=== PATIENT | male | born 1955 | race Caucasian/White ===

== ENCOUNTER 2021-11-20 13:08 | Observation (INO) ==
[2021-11-20 15:02] LABS: BASOPHILS # (AUTO) 0.1 X10^3/uL (0.0-0.1); BASOPHILS % (AUTO) 0.7 % (0.2-1.0); EOSINOPHILS # (AUTO) 0.2 x10^3/uL (0.0-0.2); EOSINOPHILS % (AUTO) 2.6 % (0.9-2.9); HEMATOCRIT 31.5 % (42.0-54.0); HEMOGLOBIN 10.7 g/dL (13.5-18.0); LYMPHOCYTES # (AUTO) 1.8 X10^3/uL (1.3-2.9); LYMPHOCYTES % (AUTO) 20.1 % (21.0-51.0); MEAN CORPUSCULAR HEMOGLOBIN 33.3 pg (27.0-34.0); MEAN CORPUSCULAR HGB CONC 33.9 g/dL (33.0-35.0); MONOCYTES # (AUTO) 0.7 x10^3/uL (0.3-0.8); MONOCYTES % (AUTO) 7.6 % (0.0-13.0); NEUTROPHILS # (AUTO) 6.1 x10^3/uL (2.2-4.8); RED BLOOD COUNT 3.21 X10^6/uL (4.7-6.0); RED CELL DISTRIBUTION WIDTH 18.4 % (11.6-16.5); WHITE BLOOD COUNT 8.9 X10^3/uL (3.6-10.0)
[2021-11-20] MEDS: NS 1,000 ML IV 1,000 ML IV SCH ×2 (15:11→21:31)
[2021-11-20 15:15] LABS: ALANINE AMINOTRANSFERASE 21 Units/L (12-78); ALBUMIN 2.9 g/dL (3.4-5.0); ALKALINE PHOSPHATASE 66 Units/L (46-116); ASPARTATE AMINO TRANSFERASE 39 Units/L (15-37); BLOOD UREA NITROGEN 7 mg/dL (7-18); CARBON DIOXIDE 33.5 mmol/L (21-32); CHLORIDE 98 mmol/L (98-107); COR CA(FOR HYPOALB) 8.9 mg/dL (8.5-10.1); CREATINE KINASE 128 Units/L (39-308); CREATININE 0.76 mg/dL (0.70-1.30); SODIUM 135 mmol/L (136-145); TOTAL PROTEIN 6.1 g/dL (6.4-8.2); eGFR NON BLACK RACES > 60 (>60)
--- NOTE | 2021-11-20 15:41 | DR.PROGNOT ---
Hospital Progress Notes - Progress Note for Day of: Progress Note Date: 11/20/21 - Chief Complaint Chief Complaint: having poor appetite , Wt loss .nausea. feeling weak antired . difficulty swallowing and nausea .. recent constipation - Past Medical Family Social History Past Med/Fam/Surg Hx: No changes since H&P Allergies: Allergies No Known Drug Allergies Allergy (Verified 11/17/21 20:09) - Review Of Systems ROS: No change since H&P - Vital Signs Vital Signs: Temperature 97.7 F Pulse Rate [Bilateral Radial] 115 Respiratory Rate 18 Blood Pressure [Left Arm] 118/70 Blood Pressure 114/64 O2 Sat by Pulse Oximetry 98 - Physical Exam Oriented: Normal Eyes: Normal Ear: Normal Nose: Normal Throat: Normal Respiratory: Normal Cardiovascular: Normal : Normal GI:Auscultation: Normal GI:Palpation: Normal GI: Tenderness: Normal Musculoskeletal: Normal Psychiatric: Depression Speech Pattern: Clear, Appropriate - Laboratory and Diagnostics Result Diagrams: 11/20/21 14:50 11/20/21 14:50 Labs: Laboratory WBC 8.9 X10^3/uL (3.6-10.0) 11/20/21 14:50 RBC 3.21 X10^6/uL (4.7-6.0) L 11/20/21 14:50 Hgb 10.7 g/dL (13.5-18.0) L 11/20/21 14:50 Hct 31.5 % (42.0-54.0) L 11/20/21 14:50 MCV 98.0 fL (80.0-100.0) 11/20/21 14:50 MCH 33.3 pg (27.0-34.0) 11/20/21 14:50 MCHC 33.9 g/dL (33.0-35.0) 11/20/21 14:50 RDW 18.4 % (11.6-16.5) H 11/20/21 14:50 Plt Count 208 X10^3/uL (150.0-450.0) 11/20/21 14:50 MPV 7.0 fL (7.4-11.0) L 11/20/21 14:50 Neut % (Auto) 69.0 % (42.0-75.0) 11/20/21 14:50 Lymph % (Auto) 20.1 % (21.0-51.0) L 11/20/21 14:50 [place] % (Auto) 7.6 % (0.0-13.0) 11/20/21 14:50 Eos % (Auto) 2.6 % (0.9-2.9) 11/20/21 14:50 Baso % (Auto) 0.7 % (0.2-1.0) 11/20/21 14:50 Neut # (Auto) 6.1 x10^3/uL (2.2-4.8) H 11/20/21 14:50 Lymph # (Auto) 1.8 X10^3/uL (1.3-2.9) 11/20/21 14:50 [place] # (Auto) 0.7 x10^3/uL (0.3-0.8) 11/20/21 14:50 Eos # (Auto) 0.2 x10^3/uL (0.0-0.2) 11/20/21 14:50 Baso # (Auto) 0.1 X10^3/uL (0.0-0.1) 11/20/21 14:50 Absolute Nucleated RBC 0.9 /100WBC 11/20/21 14:50 Sodium 135 mmol/L (136-145) L 11/20/21 14:50 Corrected Sodium TNP 11/20/21 14:50 Potassium 4.8 mmol/L (3.5-5.1) 11/20/21 14:50 Chloride 98 mmol/L (98-107) 11/20/21 14:50 Carbon Dioxide 33.5 mmol/L (21-32) H 11/20/21 14:50 BUN 7 mg/dL (7-18) 11/20/21 14:50 Creatinine 0.76 mg/dL (0.70-1.30) 11/20/21 14:50 Est GFR (MDRD) Af Amer > 60 (>60) 11/20/21 14:50 Est GFR (MDRD) Non-Af > 60 (>60) 11/20/21 14:50 Glucose 95 mg/dL (65-99) 11/20/21 14:50 Calcium 8.0 mg/dL (8.5-10.1) L 11/20/21 14:50 Corrected Calcium 8.9 mg/dL (8.5-10.1) 11/20/21 14:50 Total Bilirubin 1.00 mg/dL (0.2-1.0) 11/20/21 14:50 AST 39 Units/L (15-37) H 11/20/21 14:50 ALT 21 Units/L (12-78) 11/20/21 14:50 Alkaline Phosphatase 66 Units/L (46-116) 11/20/21 14:50 Creatine Kinase 128 Units/L (39-308) 11/20/21 14:50 Total Protein 6.1 g/dL (6.4-8.2) L 11/20/21 14:50 Albumin 2.9 g/dL (3.4-5.0) L 11/20/21 14:50 Globulin 3.2 g/dL (2.5-4.5) 11/20/21 14:50 Albumin/Globulin Ratio 0.9 Ratio (1.1-2.1) L 11/20/21 14:50 - Assessment and Plan 1: poor appettie ,and Wt loss > 20 lb. dysphagia . constipation . h/o alcohol abuse and heavy smoker . fo hydration , abd/pelvic CT . GI endoscopy on Tuesday ..
--- NOTE | 2021-11-20 16:51 | RAD ---
Chest AP portableIndication: Dehydration. Failure to thriveCOMPARISONSeptember 2021FINDINGSThere is no pneumothorax or effusion. Heart size is prominent.IMPRESSIONCardiomegaly without other acute chest process.Electronically signed by: TROY DE LOS SANTOS (Nov 20, 2021 16:49:36)
[2021-11-20] MEDS: DESYREL PO SCH (21:32)
[2021-11-20] MEDS: PERCOCET TAB 5/325 MG PO PRN (21:38)
[2021-11-20] MEDS: XANAX PO PRN (21:39)
[2021-11-20 21:46] LABS: BILIRUBIN,URINE NEGATIVE (NEGATIVE); BLOOD/HEMOGLOBIN,URINE 5+ (NEGATIVE); GLUCOSE, URINE NEGATIVE (NEGATIVE); KETONES,URINE 1+ (NEGATIVE); LEUKOCYTE ESTERASE ,URINE NEGATIVE (NEGATIVE); NITRITES,URINE NEGATIVE (NEGATIVE); PROTEIN,URINE 2+ (NEGATIVE); UROBILINOGEN,URINE 1+ (NORMAL)
[2021-11-20 21:52] LABS: APPEARANCE,URINE CLEAR (CLEAR); COLOR,URINE DARK YELLOW (YELLOW)
[2021-11-20 21:53] LABS: BACTERIA,URINE NEGATIVE /HPF (NEGATIVE); SQUAMOUS EPITHELIAL CELL,UR RARE /HPF (NEGATIVE)
[2021-11-21 05:38] LABS: BASOPHILS # (AUTO) 0.1 X10^3/uL (0.0-0.1); BASOPHILS % (AUTO) 1.1 % (0.2-1.0); EOSINOPHILS # (AUTO) 0.2 x10^3/uL (0.0-0.2); EOSINOPHILS % (AUTO) 3.1 % (0.9-2.9); HEMATOCRIT 28.2 % (42.0-54.0); HEMOGLOBIN 9.4 g/dL (13.5-18.0); LYMPHOCYTES # (AUTO) 2.3 X10^3/uL (1.3-2.9); LYMPHOCYTES % (AUTO) 33.8 % (21.0-51.0); MEAN CORPUSCULAR HEMOGLOBIN 32.8 pg (27.0-34.0); MEAN CORPUSCULAR HGB CONC 33.4 g/dL (33.0-35.0); MEAN CORPUSCULAR VOLUME 98.1 fL (80.0-100.0); MEAN PLATELET VOLUME 6.7 fL (7.4-11.0); MONOCYTES # (AUTO) 0.5 x10^3/uL (0.3-0.8); NEUTROPHILS # (AUTO) 3.7 x10^3/uL (2.2-4.8); RED BLOOD COUNT 2.87 X10^6/uL (4.7-6.0); RED CELL DISTRIBUTION WIDTH 18.4 % (11.6-16.5); WHITE BLOOD COUNT 6.8 X10^3/uL (3.6-10.0)
[2021-11-21 05:46] LABS: ALANINE AMINOTRANSFERASE 15 Units/L (12-78); ALBUMIN 2.4 g/dL (3.4-5.0); ALKALINE PHOSPHATASE 53 Units/L (46-116); ASPARTATE AMINO TRANSFERASE 15 Units/L (15-37); BLOOD UREA NITROGEN 5 mg/dL (7-18); CALCIUM 7.4 mg/dL (8.5-10.1); CARBON DIOXIDE 33.3 mmol/L (21-32); CHLORIDE 102 mmol/L (98-107); COR CA(FOR HYPOALB) 8.7 mg/dL (8.5-10.1); CREATININE 0.65 mg/dL (0.70-1.30); SODIUM 137 mmol/L (136-145); TOTAL PROTEIN 4.9 g/dL (6.4-8.2); eGFR NON BLACK RACES > 60 (>60)
[2021-11-21] MEDS: NS 1,000 ML IV 1,000 ML IV SCH ×3 (06:28→18:13)
[2021-11-21] MEDS: NexIUM PO SCH (08:18)
[2021-11-21] MEDS: PERCOCET TAB 5/325 MG PO PRN ×2 (08:19→21:08)
[2021-11-21] MEDS: XANAX PO PRN ×2 (08:19→21:08)
[2021-11-21] MEDS ORDERED: K-DUR TAB 20 MEQ PO PRN (09:58)
[2021-11-21] MEDS ORDERED: POTASSIUM CHLORIDE LIQ 20 MEQ UDC PO PRN (09:58)
[2021-11-21] MEDS ORDERED: MICRO K EXTEN CAP 10 MEQ PO PRN (09:58)
[2021-11-21] MEDS ORDERED: POTASSIUM CHL 40 MEQ/NS 0.45% 500 ML IV PRN (09:58)
[2021-11-21] MEDS ORDERED: KLOR-CON PO PRN (09:58)
[2021-11-21] MEDS ORDERED: POTASSIUM CHL 60 MEQ/NS 0.45% 500 ML IV PRN (09:58)
[2021-11-21] MEDS ORDERED: K-RIDER 10 MEQ/NS 100 ML 10 MEQ/100 ML BAG IV PRN (09:58)
[2021-11-21] MEDS: MAGNESIUM SULFATE 1 GRAM/100 mL PREMIX 1 G/100 ML BAG IV PRN ×2 (11:32→12:44)
[2021-11-21 18:56] VITALS: BMI 36.6
[2021-11-21] MEDS: DESYREL PO SCH (22:04)
[2021-11-22] MEDS: NS 1,000 ML IV 1,000 ML IV SCH ×3 (04:11→14:16)
[2021-11-22 05:27] LABS: HEMOGLOBIN 10.3 g/dL (13.5-18.0); WHITE BLOOD COUNT 7.3 X10^3/uL (3.6-10.0)
[2021-11-22 05:31] LABS: BASOPHILS % (AUTO) 0.6 % (0.2-1.0); EOSINOPHILS # (AUTO) 0.3 x10^3/uL (0.0-0.2); EOSINOPHILS % (AUTO) 3.5 % (0.9-2.9); LYMPHOCYTES # (AUTO) 1.8 X10^3/uL (1.3-2.9); LYMPHOCYTES % (AUTO) 24.5 % (21.0-51.0); MEAN CORPUSCULAR HEMOGLOBIN 33.7 pg (27.0-34.0); MEAN CORPUSCULAR HGB CONC 34.3 g/dL (33.0-35.0); MEAN CORPUSCULAR VOLUME 98.3 fL (80.0-100.0); MEAN PLATELET VOLUME 7.1 fL (7.4-11.0); MONOCYTES # (AUTO) 0.6 x10^3/uL (0.3-0.8); MONOCYTES % (AUTO) 8.3 % (0.0-13.0); NEUTROPHILS # (AUTO) 4.6 x10^3/uL (2.2-4.8); NEUTROPHILS % (AUTO) 63.1 % (42.0-75.0); RED BLOOD COUNT 3.05 X10^6/uL (4.7-6.0); RED CELL DISTRIBUTION WIDTH 19.1 % (11.6-16.5)
[2021-11-22] MEDS: XANAX PO PRN ×2 (05:44→21:07)
[2021-11-22] MEDS: PERCOCET TAB 5/325 MG PO PRN ×3 (05:44→21:06)
[2021-11-22 05:45] LABS: ALANINE AMINOTRANSFERASE 15 Units/L (12-78); ALBUMIN 2.5 g/dL (3.4-5.0); ALKALINE PHOSPHATASE 60 Units/L (46-116); ASPARTATE AMINO TRANSFERASE 13 Units/L (15-37); BLOOD UREA NITROGEN 4 mg/dL (7-18); CALCIUM 7.5 mg/dL (8.5-10.1); CARBON DIOXIDE 30.3 mmol/L (21-32); CHLORIDE 103 mmol/L (98-107); COR CA(FOR HYPOALB) 8.7 mg/dL (8.5-10.1); CREATININE 0.57 mg/dL (0.70-1.30); SODIUM 137 mmol/L (136-145); TOTAL PROTEIN 5.3 g/dL (6.4-8.2); eGFR NON BLACK RACES > 60 (>60)
[2021-11-22] MEDS: NexIUM PO SCH (08:34)
[2021-11-22] MEDS ORDERED: CITROMA PO PRN (10:26)
[2021-11-22] MEDS ORDERED: MILK OF MAGNESIA PO ONE (10:26)
--- NOTE | 2021-11-22 12:41 | DR.H&P ---
H&P History & Physical for Day of: H&P Date: 11/20/21 Chief Complaint Chief Complaint: Abdominal Pain Nausea/vomiting Generalized weakness Allergies Allergies Allergy/AdvReac Type Severity Reaction Status Date / Time No Known Drug Allergies Allergy Verified 11/17/21 20:09 History of Present Illness History of Present Illness: Pt is a 66 year old male past medical history of Hypertension, DDD, directly admitted after failing outpatient treatment and being found by his ex- on the floor due to weakness. Pt reports that he has had unintentional weight loss and decreased appetite for the past 2 months. He has recently been having abdominal pain and nausea/vomiting this week. He has been feeling fatigued. Labs/imaging: Wbc 8.9, Hgb 10.7, Plt 208, Na 135, K 4.8, Creatinine 0.76, Glucose 95, CK 128, UA: not c/w infection. COVID-19 negative. Will start patient on IVF NS@125ml/h, will get CTAP with oral and IV contrast due to abdominal pain, nausea, vomiting, abnormal weight loss, in the of suspected and to rule out cancer. Keep NPO until imaging. Pt did have elevated CEA in outpatient clinic. Will consult general surgery-Dr Mendoza for further evaluation. Order antiemetics prn. Will continue to closely monitor and follow up labs/imaging. Past Medical History Past Medical History: Arthritis and Hypertension Past Surgical History Surgical History: Ortho Surgery and Other Family History Family Medical History: Diabetes Mellitus, Cancer, NH and Hypertension Social History Does patient currently use any type of tobacco product: Yes Have you used tobacco products in the last 12 months: Yes Type of Tobacco Use: Cigarettes Does any household member use tobacco: No Alcohol Use: None Drug Use: None Medications Home Medications: No Known Drug Allergies Allergy (Verified 11/17/21 20:09) CONTINUE taking the following medications alprazolam 0.5 mg tablet 1 tab PO BID PRN Anxiety 11/20/21 [History] ciprofloxacin HCl 500 mg tablet 500 mg PO BID 11/20/21 [History] esomeprazole magnesium 40 mg capsule,delayed release 1 cap PO DAILY 11/20/21 [History] oxycodone-acetaminophen 10 mg-325 mg tablet 1 tab PO TID PRN Pain 11/20/21 [His tory] promethazine 25 mg tablet 25 mg PO Q6H PRN Nausea 11/20/21 [History] trazodone 150 mg tablet 1 tab PO HS 11/20/21 [History] Labs Result Diagrams: 11/23/21 05:33 11/23/21 05:33 Labs: 11/20/21 21:27 Urine,Clean Catch Urine Culture - Preliminary Laboratory WBC 7.3 X10^3/uL (3.6-10.0) 11/22/21 04:30 RBC 3.05 X10^6/uL (4.7-6.0) L 11/22/21 04:30 Hgb 10.3 g/dL (13.5-18.0) L 11/22/21 04:30 Hct 30.0 % (42.0-54.0) L 11/22/21 04:30 MCV 98.3 fL (80.0-100.0) 11/22/21 04:30 MCH 33.7 pg (27.0-34.0) 11/22/21 04:30 MCHC 34.3 g/dL (33.0-35.0) 11/22/21 04:30 RDW 19.1 % (11.6-16.5) H 11/22/21 04:30 Plt Count 202 X10^3/uL (150.0-450.0) 11/22/21 04:30 MPV 7.1 fL (7.4-11.0) L 11/22/21 04:30 Neut % (Auto) 63.1 % (42.0-75.0) 11/22/21 04:30 Lymph % (Auto) 24.5 % (21.0-51.0) 11/22/21 04:30 [place] % (Auto) 8.3 % (0.0-13.0) 11/22/21 04:30 Eos % (Auto) 3.5 % (0.9-2.9) H 11/22/21 04:30 Baso % (Auto) 0.6 % (0.2-1.0) 11/22/21 04:30 Neut # (Auto) 4.6 x10^3/uL (2.2-4.8) 11/22/21 04:30 Lymph # (Auto) 1.8 X10^3/uL (1.3-2.9) 11/22/21 04:30 [place] # (Auto) 0.6 x10^3/uL (0.3-0.8) 11/22/21 04:30 Eos # (Auto) 0.3 x10^3/uL (0.0-0.2) H 11/22/21 04:30 Baso # (Auto) 0.0 X10^3/uL (0.0-0.1) 11/22/21 04:30 Absolute Nucleated RBC 0.3 /100WBC 11/22/21 04:30 Sodium 137 mmol/L (136-145) 11/22/21 04:30 Corrected Sodium TNP 11/22/21 04:30 Potassium 3.9 mmol/L (3.5-5.1) 11/22/21 04:30 Chloride 103 mmol/L (98-107) 11/22/21 04:30 Carbon Dioxide 30.3 mmol/L (21-32) 11/22/21 04:30 BUN 4 mg/dL (7-18) L 11/22/21 04:30 Creatinine 0.57 mg/dL (0.70-1.30) L 11/22/21 04:30 Est GFR (MDRD) Af Amer > 60 (>60) 11/22/21 04:30 Est GFR (MDRD) Non-Af > 60 (>60) 11/22/21 04:30 Glucose 76 mg/dL (65-99) 11/22/21 04:30 Calcium 7.5 mg/dL (8.5-10.1) L 11/22/21 04:30 Corrected Calcium 8.7 mg/dL (8.5-10.1) 11/22/21 04:30 Magnesium 1.8 mg/dL (1.7-2.9) 11/22/21 04:30 Total Bilirubin 0.70 mg/dL (0.2-1.0) 11/22/21 04:30 AST 13 Units/L (15-37) L 11/22/21 04:30 ALT 15 Units/L (12-78) 11/22/21 04:30 Alkaline Phosphatase 60 Units/L (46-116) 11/22/21 04:30 Creatine Kinase 128 Units/L (39-308) 11/20/21 14:50 Total Protein 5.3 g/dL (6.4-8.2) L 11/22/21 04:30 Albumin 2.5 g/dL (3.4-5.0) L 11/22/21 04:30 Globulin 2.8 g/dL (2.5-4.5) 11/22/21 04:30 Albumin/Globulin Ratio 0.9 Ratio (1.1-2.1) L 11/22/21 04:30 Specimen Type Clean catch urine 11/20/21 21: Urine Color Dark yellow (YELLOW) 11/20/21 21: Urine Appearance Clear (CLEAR) 11/20/21 21: Urine pH 7.0 (5.0 - 8.0) 11/20/21 21: Ur Specific [place] 1.010 (1.000-1.030) 11/20/21 21: Urine Protein 2+ (NEGATIVE) 11/20/21 21: Urine Glucose (UA) Negative (NEGATIVE) 11/20/21 21: Urine Ketones 1+ (NEGATIVE) 11/20/21 21: Urine Blood 5+ (NEGATIVE) 11/20/21 21: Urine Nitrite Negative (NEGATIVE) 11/20/21 21: Urine Bilirubin Negative (NEGATIVE) 11/20/21 21: Urine Urobilinogen 1+ (NORMAL) 11/20/21 21: Ur Leukocyte Esterase Negative (NEGATIVE) 11/20/21 21: Urine RBC 10-20 /HPF (0-3) A 11/20/21 21: Urine WBC None seen /HPF (0-5) 11/20/21 21: Ur Squamous Epith Cells Rare /HPF (NEGATIVE) 11/20/21 21: Urine Bacteria Negative /HPF (NEGATIVE) 11/20/21 21: Urine Mucus Rare /HPF (NEGATIVE) 11/20/21 21: Ur Culture Indicated? No/not indicated 11/20/21 21: SARS-CoV-2 (PCR) Negative (NEGATIVE) 11/20/21 21: Review of Systems Constitutional: Weakness Eyes: No Symptoms Reported ENT: No Symptoms Reported Respiratory: No Symptoms Reported Cardiovascular: No Symptoms Reported Gastrointestinal: Nausea, Vomiting and Abdominal Pain Genitourinary: No Symptoms Reported Musculoskeletal: No Symptoms Reported Skin: No Symptoms Reported Neurological: No Symptoms Reported Physical Exam Vital Signs: Temperature 97.6 F Pulse Rate [Bilateral Radial] 104 Respiratory Rate 22 Blood Pressure [Left Arm] 124/60 Blood Pressure 114/64 O2 Sat by Pulse Oximetry 97 Oriented: Normal Eyes: Normal Ear: Normal Nose: Normal Throat: Normal Respiratory: Clear Throughout Cardiovascular: Normal : Normal Auscultation: Bowel Sounds: Normal Palpation: Normal Tenderness: Epigastric and Moderate Skin: Decreased [place]urgur Musculoskeletal: Normal Psychiatric: Normal Mood Description: Calm and Appropriate Affect: Normal Speech Pattern: Clear and Appropriate Assessment/Plan (1) Abdominal pain: Status: Acute Plan: IVF, order CTAP Antiemetics prn Consult general surgery (2) Nausea and vomiting: Status: Acute (3) Unintentional weight loss: Status: Acute (4) Weakness: Status: Acute (5) Dehydration: Status: Acute Plan: IVF (6) Elevated CEA: Status: Acute Plan: consult general surgery (7) Anemia: Status: Acute Plan: Anemia workup Review H&P Reviewed: Yes Patient was examined?: Yes
--- NOTE | 2021-11-22 15:23 | RAD ---
HISTORYconstipation, failure to thrive, dehydrationSTUDYKUBCOMPARISONNone br.br.br imageFINDINGSModerate stool burden and gaseous distension of the colon involving the cecum to distal transverse colon.Small stool burden in the remainder of the colon.Gas in scattered loops of non-distended small bowel.No gross free air.No abnormal calcifications.No acute osseous abnormality.IMPRESSION1. No acute intra-abdominal abnormality detected.2. Moderate stool burden and gaseous distension of the colon involving the cecum to distal transverse colon. Small stool burden in the remainder of the colon.Electronically signed by: Holden Doll (Nov 22, 2021 15:21:17)
[2021-11-22] MEDS: MAGNESIUM SULFATE 1 GRAM/100 mL PREMIX 1 G/100 ML BAG IV PRN ×2 (15:40→16:51)
[2021-11-22] MEDS: PROVENTIL NEB TX 0.083% 2.5MG/ 3ML NEB SCH ×2 (16:35→17:15)
--- NOTE | 2021-11-22 17:08 | PCM.PROG ---
Progress Note Progress Note for Day of Date of Exam: 11/22/21 Subjective Subjective: The patient is fairly groggy this morning. He was slow to get aroused and start talking this morning. He reports that he still feeling weak but he managed to get to the bathroom earlier with help from the nurse. Patient does report not having a bowel movement in the last 2 to 3 days and he feels constipated. We will order him some milk of magnesia today and if that does not work by about 4 or 5:00 this afternoon we will give him some magnesium citrate. Past Medical Family Social History Past Med/Fam/Surg Hx: No changes since H&P Allergies: Allergies No Known Drug Allergies Allergy (Verified 11/17/21 20:09) Review of Systems ROS: No change since H&P Vital Signs and I&O's Vital Signs: Temperature 97.7 F Pulse Rate [Bilateral Radial] 109 Respiratory Rate 20 Blood Pressure [Left Arm] 149/76 Blood Pressure 114/64 O2 Sat by Pulse Oximetry 97 Intake and Output: Intake & Output 11/20/21 11/21/21 11/22/21 11/23/21 11:59 11:59 11:59 11:59 Intake Total 1747 / 1747 2569 / 2569 1113 / 1113 Output Total 800 / 800 500 / 500 Balance 947 / 947 2069 / 2069 1113 / 1113 Physical Exam Oriented: Normal Eyes: Normal Ear: Normal Nose: Normal Throat: Normal Respiratory: Normal Cardiovascular: Normal : Normal Auscultation: Bowel Sounds: Normal Tenderness: Epigastric and Moderate Skin: Decreased [place] Musculoskeletal: Normal Psychiatric: Normal Mood Description: Calm and Appropriate Affect: Normal Speech Pattern: Clear and Appropriate Laboratory and Diagnostics Result Diagrams: 11/22/21 04:30 11/22/21 04:30 Labs: 11/20/21 21:27 Urine,Clean Catch Urine Culture - Preliminary Laboratory WBC 7.3 X10^3/uL (3.6-10.0) 11/22/21 04:30 RBC 3.05 X10^6/uL (4.7-6.0) L 11/22/21 04:30 Hgb 10.3 g/dL (13.5-18.0) L 11/22/21 04:30 Hct 30.0 % (42.0-54.0) L 11/22/21 04:30 MCV 98.3 fL (80.0-100.0) 11/22/21 04:30 MCH 33.7 pg (27.0-34.0) 11/22/21 04:30 MCHC 34.3 g/dL (33.0-35.0) 11/22/21 04:30 RDW 19.1 % (11.6-16.5) H 11/22/21 04:30 Plt Count 202 X10^3/uL (150.0-450.0) 11/22/21 04:30 MPV 7.1 fL (7.4-11.0) L 11/22/21 04:30 Neut % (Auto) 63.1 % (42.0-75.0) 11/22/21 04:30 Lymph % (Auto) 24.5 % (21.0-51.0) 11/22/21 04:30 [place] % (Auto) 8.3 % (0.0-13.0) 11/22/21 04:30 Eos % (Auto) 3.5 % (0.9-2.9) H 11/22/21 04:30 Baso % (Auto) 0.6 % (0.2-1.0) 11/22/21 04:30 Neut # (Auto) 4.6 x10^3/uL (2.2-4.8) 11/22/21 04:30 Lymph # (Auto) 1.8 X10^3/uL (1.3-2.9) 11/22/21 04:30 [place] # (Auto) 0.6 x10^3/uL (0.3-0.8) 11/22/21 04:30 Eos # (Auto) 0.3 x10^3/uL (0.0-0.2) H 11/22/21 04:30 Baso # (Auto) 0.0 X10^3/uL (0.0-0.1) 11/22/21 04:30 Absolute Nucleated RBC 0.3 /100WBC 11/22/21 04:30 Sodium 137 mmol/L (136-145) 11/22/21 04:30 Corrected Sodium TNP 11/22/21 04:30 Potassium 3.9 mmol/L (3.5-5.1) 11/22/21 04:30 Chloride 103 mmol/L (98-107) 11/22/21 04:30 Carbon Dioxide 30.3 mmol/L (21-32) 11/22/21 04:30 BUN 4 mg/dL (7-18) L 11/22/21 04:30 Creatinine 0.57 mg/dL (0.70-1.30) L 11/22/21 04:30 Est GFR (MDRD) Af Amer > 60 (>60) 11/22/21 04:30 Est GFR (MDRD) Non-Af > 60 (>60) 11/22/21 04:30 Glucose 76 mg/dL (65-99) 11/22/21 04:30 Calcium 7.5 mg/dL (8.5-10.1) L 11/22/21 04:30 Corrected Calcium 8.7 mg/dL (8.5-10.1) 11/22/21 04:30 Magnesium 1.8 mg/dL (1.7-2.9) 11/22/21 04:30 Total Bilirubin 0.70 mg/dL (0.2-1.0) 11/22/21 04:30 AST 13 Units/L (15-37) L 11/22/21 04:30 ALT 15 Units/L (12-78) 11/22/21 04:30 Alkaline Phosphatase 60 Units/L (46-116) 11/22/21 04:30 Creatine Kinase 128 Units/L (39-308) 11/20/21 14:50 Total Protein 5.3 g/dL (6.4-8.2) L 11/22/21 04:30 Albumin 2.5 g/dL (3.4-5.0) L 11/22/21 04:30 Globulin 2.8 g/dL (2.5-4.5) 11/22/21 04:30 Albumin/Globulin Ratio 0.9 Ratio (1.1-2.1) L 11/22/21 04:30 Specimen Type Clean catch urine 11/20/21 21: Urine Color Dark yellow (YELLOW) 11/20/21 21: Urine Appearance Clear (CLEAR) 11/20/21 21: Urine pH 7.0 (5.0 - 8.0) 11/20/21 21: Ur Specific [place] 1.010 (1.000-1.030) 11/20/21 21: Urine Protein 2+ (NEGATIVE) 11/20/21 21: Urine Glucose (UA) Negative (NEGATIVE) 11/20/21 21: Urine Ketones 1+ (NEGATIVE) 11/20/21 21:27 Urine Blood 5+ (NEGATIVE) 11/20/21 21:27 Urine Nitrite Negative (NEGATIVE) 11/20/21 21: Urine Bilirubin Negative (NEGATIVE) 11/20/21 21: Urine Urobilinogen 1+ (NORMAL) 11/20/21 21:27 Ur Leukocyte Esterase Negative (NEGATIVE) 11/20/21 21: Urine RBC 10-20 /HPF (0-3) A 11/20/21 21: Urine WBC None seen /HPF (0-5) 11/20/21 21:27 Ur Squamous Epith Cells Rare /HPF (NEGATIVE) 11/20/21 21: Urine Bacteria Negative /HPF (NEGATIVE) 11/20/21 21: Urine Mucus Rare /HPF (NEGATIVE) 11/20/21 21:27 Ur Culture Indicated? No/not indicated 11/20/21 21:27 SARS-CoV-2 (PCR) Negative (NEGATIVE) 11/20/21 21:27 Plan (1) Weakness: Status: Acute (2) Abdominal pain: Status: Acute (3) Nausea and vomiting: Status: Acute (4) Dehydration: Status: Acute (5) Unintentional weight loss: Status: Acute (6) Elevated CEA: Status: Acute (7) Anemia: Status: Acute (8) Constipation: Status: Acute Plan: Milk of magnesia 30 mL this morning. If this does not help him have a bowel movement later today we will give him a bottle of magnesium citrate this late afternoon if need be.
[2021-11-22 20:05] LABS: APPEARANCE,URINE CLEAR (CLEAR); BILIRUBIN,URINE NEGATIVE (NEGATIVE); BLOOD/HEMOGLOBIN,URINE 5+ (NEGATIVE); GLUCOSE, URINE NEGATIVE (NEGATIVE); KETONES,URINE 1+ (NEGATIVE); LEUKOCYTE ESTERASE ,URINE NEGATIVE (NEGATIVE); NITRITES,URINE NEGATIVE (NEGATIVE); PROTEIN,URINE 1+ (NEGATIVE); UROBILINOGEN,URINE NORMAL (NORMAL)
[2021-11-22 20:06] LABS: COLOR,URINE DARK YELLOW (YELLOW)
[2021-11-22 20:14] LABS: BACTERIA,URINE NEGATIVE /HPF (NEGATIVE); SQUAMOUS EPITHELIAL CELL,UR RARE /HPF (NEGATIVE); TRANSITIONAL EPI CELLS,URINE FEW /HPF (NEGATIVE)
[2021-11-22] MEDS: GOLYTELY or GAVILYTE or Equivalent PO SCH (21:08)
[2021-11-22] MEDS: DESYREL PO SCH (21:08)
[2021-11-23] MEDS: PROVENTIL NEB TX 0.083% 2.5MG/ 3ML NEB SCH ×2 (00:45→05:58)
[2021-11-23] MEDS ORDERED: ZOFRAN INJ 4 MG VIAL IVP ONE (03:14)
[2021-11-23] MEDS ORDERED: ZOFRAN INJ 4 MG VIAL ONE (03:17)
[2021-11-23] MEDS: NS 1,000 ML IV 1,000 ML IV SCH ×3 (05:16→19:48)
[2021-11-23] MEDS ORDERED: STERILE WATER IRRIGATION IR ONE ×2 (05:43→10:30)
[2021-11-23 05:52] LABS: BASOPHILS # (AUTO) 0.1 X10^3/uL (0.0-0.1); BASOPHILS % (AUTO) 0.6 % (0.2-1.0); EOSINOPHILS # (AUTO) 0.2 x10^3/uL (0.0-0.2); EOSINOPHILS % (AUTO) 2.6 % (0.9-2.9); HEMATOCRIT 31.7 % (42.0-54.0); HEMOGLOBIN 10.3 g/dL (13.5-18.0); LYMPHOCYTES % (AUTO) 12.8 % (21.0-51.0); MEAN CORPUSCULAR HEMOGLOBIN 32.3 pg (27.0-34.0); MEAN CORPUSCULAR HGB CONC 32.5 g/dL (33.0-35.0); MEAN CORPUSCULAR VOLUME 99.6 fL (80.0-100.0); MONOCYTES # (AUTO) 0.8 x10^3/uL (0.3-0.8); MONOCYTES % (AUTO) 9.4 % (0.0-13.0); NEUTROPHILS % (AUTO) 74.6 % (42.0-75.0); RED BLOOD COUNT 3.18 X10^6/uL (4.7-6.0); RED CELL DISTRIBUTION WIDTH 19.2 % (11.6-16.5); WHITE BLOOD COUNT 8.1 X10^3/uL (3.6-10.0)
[2021-11-23 06:08] LABS: ALANINE AMINOTRANSFERASE 15 Units/L (12-78); ALBUMIN 2.6 g/dL (3.4-5.0); ALKALINE PHOSPHATASE 68 Units/L (46-116); ASPARTATE AMINO TRANSFERASE 16 Units/L (15-37); BLOOD UREA NITROGEN 7 mg/dL (7-18); CALCIUM 7.9 mg/dL (8.5-10.1); CARBON DIOXIDE 27.2 mmol/L (21-32); CHLORIDE 102 mmol/L (98-107); CREATININE 0.68 mg/dL (0.70-1.30); MAGNESIUM 2.1 mg/dL (1.7-2.9); SODIUM 137 mmol/L (136-145); TOTAL PROTEIN 5.8 g/dL (6.4-8.2); eGFR NON BLACK RACES > 60 (>60)
--- NOTE | 2021-11-23 07:37 | PCM.PROG ---
Progress Note Progress Note for Day of Date of Exam: 11/21/21 Subjective Subjective: Pt is a 66 year old male past medical history of Hypertension, DDD, admitted for abdominal pain, nausea, vomiting, and unintentional weight loss. This morning he is feeling about the same as yesterday except with some improvement in abdominal pain and nausea. No acute events overnight. Labs /imaging: Wbc 6.8, Hgb 9.4, Plt 180, Na 137, K 3.4, Creatinine 0.65, Glucose 82. Pt is currently receiving IVF NS@125ml/h, antiemetics prn, home medications have been resumed, he is on regular diet. CT abdomen/pelvis was obtained that revealed: No acute intra abdominal/pelvic process, left adrenal nodule 2cm favors adenoma to follow up with repeat CT in on year. CXR was obtained:cardiomegaly, otherwise no acute cardiopulmonary findings. General surgery-Dr Mendoza consulted, recommend endoscopy for further evaluation. Plan on Tuesday. Otherwise, will continue with current treatment plan. Continue to monitor and follow up labs. Past Medical Family Social History Past Med/Fam/Surg Hx: No changes since H&P Allergies: Allergies No Known Drug Allergies Allergy (Verified 11/17/21 20:09) Review of Systems ROS: No change since H&P ROS changes noted: See HPI Vital Signs and I&O's Vital Signs: Temperature 98.5 F Pulse Rate [Bilateral Radial] 118 Pulse Rate 105 Respiratory Rate 20 Blood Pressure [Left Arm] 136/60 Blood Pressure 114/64 O2 Sat by Pulse Oximetry 96 Intake and Output: Intake & Output 11/20/21 11/21/21 11/22/21 11/23/21 23:59 23:59 23:59 23:59 Intake Total 525 / 525 2862 / 2862 2932 / 2932 376 / 376 Output Total 400 / 400 550 / 550 1100 / 1100 300 / 300 Balance 125 / 125 2312 / 2312 1832 / 1832 76 / 76 Physical Exam Oriented: Normal Eyes: Normal Ear: Normal Nose: Normal Throat: Normal Respiratory: Normal Cardiovascular: Normal : Normal Auscultation: Bowel Sounds: Normal Tenderness: Epigastric and Moderate Skin: Decreased Turgur Musculoskeletal: Normal Psychiatric: Normal Mood Description: Calm and Appropriate Affect: Normal Speech Pattern: Clear and Appropriate Laboratory and Diagnostics Result Diagrams: 11/23/21 05:33 11/23/21 05:33 Labs: 11/20/21 21:27 Urine,Clean Catch Urine Culture - Preliminary Laboratory WBC 8.1 X10^3/uL (3.6-10.0) 11/23/21 05:33 RBC 3.18 X10^6/uL (4.7-6.0) L 11/23/21 05:33 Hgb 10.3 g/dL (13.5-18.0) L 11/23/21 05:33 Hct 31.7 % (42.0-54.0) L 11/23/21 05:33 MCV 99.6 fL (80.0-100.0) 11/23/21 05:33 MCH 32.3 pg (27.0-34.0) 11/23/21 05:33 MCHC 32.5 g/dL (33.0-35.0) L 11/23/21 05:33 RDW 19.2 % (11.6-16.5) H 11/23/21 05:33 Plt Count 215 X10^3/uL (150.0-450.0) 11/23/21 05:33 MPV 7.0 fL (7.4-11.0) L 11/23/21 05:33 Neut % (Auto) 74.6 % (42.0-75.0) 11/23/21 05:33 Lymph % (Auto) 12.8 % (21.0-51.0) L 11/23/21 05:33 [place] % (Auto) 9.4 % (0.0-13.0) 11/23/21 05:33 Eos % (Auto) 2.6 % (0.9-2.9) 11/23/21 05:33 Baso % (Auto) 0.6 % (0.2-1.0) 11/23/21 05:33 Neut # (Auto) 6.0 x10^3/uL (2.2-4.8) H 11/23/21 05:33 Lymph # (Auto) 1.0 X10^3/uL (1.3-2.9) L 11/23/21 05:33 [place] # (Auto) 0.8 x10^3/uL (0.3-0.8) 11/23/21 05:33 Eos # (Auto) 0.2 x10^3/uL (0.0-0.2) 11/23/21 05:33 Baso # (Auto) 0.1 X10^3/uL (0.0-0.1) 11/23/21 05:33 Absolute Nucleated RBC 0.3 /100WBC 11/23/21 05:33 Sodium 137 mmol/L (136-145) 11/23/21 05:33 Corrected Sodium TNP 11/23/21 05:33 Potassium 4.0 mmol/L (3.5-5.1) 11/23/21 05:33 Chloride 102 mmol/L (98-107) 11/23/21 05:33 Carbon Dioxide 27.2 mmol/L (21-32) 11/23/21 05:33 BUN 7 mg/dL (7-18) 11/23/21 05:33 Creatinine 0.68 mg/dL (0.70-1.30) L 11/23/21 05:33 Est GFR (MDRD) Af Amer > 60 (>60) 11/23/21 05:33 Est GFR (MDRD) Non-Af > 60 (>60) 11/23/21 05:33 Glucose 96 mg/dL (65-99) 11/23/21 05:33 Calcium 7.9 mg/dL (8.5-10.1) L 11/23/21 05:33 Corrected Calcium 9.0 mg/dL (8.5-10.1) 11/23/21 05:33 Magnesium 2.1 mg/dL (1.7-2.9) 11/23/21 05:33 Total Bilirubin 0.80 mg/dL (0.2-1.0) 11/23/21 05:33 AST 16 Units/L (15-37) 11/23/21 05:33 ALT 15 Units/L (12-78) 11/23/21 05:33 Alkaline Phosphatase 68 Units/L (46-116) 11/23/21 05:33 Creatine Kinase 128 Units/L (39-308) 11/20/21 14:50 Total Protein 5.8 g/dL (6.4-8.2) L 11/23/21 05:33 Albumin 2.6 g/dL (3.4-5.0) L 11/23/21 05:33 Globulin 3.2 g/dL (2.5-4.5) 11/23/21 05:33 Albumin/Globulin Ratio 0.8 Ratio (1.1-2.1) L 11/23/21 05:33 Specimen Type Catherized urine 11/22/21 19:51 Urine Color Dark yellow (YELLOW) 11/22/21 19:51 Urine Appearance Clear (CLEAR) 11/22/21 19:51 Urine pH 5.0 (5.0 - 8.0) 11/22/21 19:51 Ur Specific [place] 1.025 (1.000-1.030) 11/22/21 19:51 Urine Protein 1+ (NEGATIVE) 11/22/21 19:51 Urine Glucose (UA) Negative (NEGATIVE) 11/22/21 19:51 Urine Ketones 1+ (NEGATIVE) 11/22/21 19:51 Urine Blood 5+ (NEGATIVE) 11/22/21 19:51 Urine Nitrite Negative (NEGATIVE) 11/22/21 19:51 Urine Bilirubin Negative (NEGATIVE) 11/22/21 19:51 Urine Urobilinogen Normal (NORMAL) 11/22/21 19:51 Ur Leukocyte Esterase Negative (NEGATIVE) 11/22/21 19:51 Urine RBC 10-20 /HPF (0-3) A 11/22/21 19:51 Urine WBC 0-2 /HPF (0-5) 11/22/21 19:51 Ur Squamous Epith Cells Rare /HPF (NEGATIVE) 11/22/21 19:51 Ur Transition Epith Cell Few /HPF (NEGATIVE) 11/22/21 19:51 Urine Bacteria Negative /HPF (NEGATIVE) 11/22/21 19:51 Urine Mucus Rare /HPF (NEGATIVE) 11/20/21 21:27 Ur Culture Indicated? No/not indicated 11/22/21 19:51 SARS-CoV-2 (PCR) Negative (NEGATIVE) 11/20/21 21:27 Plan (1) Abdominal pain: Status: Acute Plan: IVF, Antiemetics prn Consulted general surgery (2) Nausea and vomiting: Status: Acute (3) Unintentional weight loss: Status: Acute (4) Weakness: Status: Acute (5) Dehydration: Status: Acute Plan: IVF (6) Elevated CEA: Status: Acute Plan: consult general surgery (7) Anemia: Status: Acute Plan: Anemia workup
[2021-11-23] MEDS: LOVENOX INJ 40 MG SYR SC SCH (11:41)
[2021-11-23] MEDS: NexIUM PO SCH (11:41)
[2021-11-23] MEDS: DUONEB 0.5 MG/3 MG (3 mL) NEB SCH ×3 (13:00→17:20)
[2021-11-23] MEDS ORDERED: DIPRIVAN VIAL 20 ML ONE (15:20)
[2021-11-23] MEDS: XANAX PO PRN (16:11)
[2021-11-23] MEDS: PERCOCET TAB 5/325 MG PO PRN (16:12)
[2021-11-23] MEDS: GOLYTELY or GAVILYTE or Equivalent PO SCH (19:37)
[2021-11-23] MEDS: DESYREL PO SCH (20:02)
[2021-11-24] MEDS: DUONEB 0.5 MG/3 MG (3 mL) NEB SCH ×5 (00:50→18:45)
[2021-11-24 06:18] LABS: BASOPHILS % (AUTO) 0.4 % (0.2-1.0); EOSINOPHILS # (AUTO) 0.2 x10^3/uL (0.0-0.2); EOSINOPHILS % (AUTO) 2.2 % (0.9-2.9); HEMATOCRIT 28.7 % (42.0-54.0); HEMOGLOBIN 9.7 g/dL (13.5-18.0); LYMPHOCYTES # (AUTO) 1.2 X10^3/uL (1.3-2.9); LYMPHOCYTES % (AUTO) 16.8 % (21.0-51.0); MEAN CORPUSCULAR HEMOGLOBIN 33.7 pg (27.0-34.0); MEAN CORPUSCULAR HGB CONC 33.7 g/dL (33.0-35.0); MEAN PLATELET VOLUME 7.4 fL (7.4-11.0); MONOCYTES # (AUTO) 0.7 x10^3/uL (0.3-0.8); MONOCYTES % (AUTO) 9.7 % (0.0-13.0); NEUTROPHILS # (AUTO) 5.2 x10^3/uL (2.2-4.8); NEUTROPHILS % (AUTO) 70.9 % (42.0-75.0); RED BLOOD COUNT 2.87 X10^6/uL (4.7-6.0); RED CELL DISTRIBUTION WIDTH 19.8 % (11.6-16.5); WHITE BLOOD COUNT 7.3 X10^3/uL (3.6-10.0)
[2021-11-24 06:37] LABS: ALANINE AMINOTRANSFERASE 17 Units/L (12-78); ALBUMIN 2.4 g/dL (3.4-5.0); ALKALINE PHOSPHATASE 64 Units/L (46-116); ASPARTATE AMINO TRANSFERASE 17 Units/L (15-37); BLOOD UREA NITROGEN 5 mg/dL (7-18); CALCIUM 7.8 mg/dL (8.5-10.1); CARBON DIOXIDE 29.6 mmol/L (21-32); CHLORIDE 104 mmol/L (98-107); COR CA(FOR HYPOALB) 9.1 mg/dL (8.5-10.1); CREATININE 0.52 mg/dL (0.70-1.30); SODIUM 138 mmol/L (136-145); TOTAL PROTEIN 5.5 g/dL (6.4-8.2); eGFR NON BLACK RACES > 60 (>60)
[2021-11-24] MEDS: LOVENOX INJ 40 MG SYR SC SCH (08:45)
[2021-11-24] MEDS: NS 1,000 ML IV 1,000 ML IV SCH (08:45)
[2021-11-24] MEDS: XANAX PO PRN (08:45)
[2021-11-24] MEDS: NexIUM PO SCH (08:45)
--- NOTE | 2021-11-24 10:01 | PCM.PROG ---
Progress Note Progress Note for Day of Date of Exam: 11/23/21 Subjective Subjective: Pt is a 66 year old male past medical history of Hypertension, DDD, admitted for abdominal pain, nausea, vomiting, and unintentional weight loss. He is lying in bed this morning, plan for EGD and colonoscopy today. No acute events overnight. Labs/imaging: Wbc 8.1, Hgb 10.3, Plt 215, Na 137, K 4.0, Creatinine 0.68, Glucose 96. Pt is currently receiving IVF NS@125ml/h, antiemetics prn, home medications have been resumed, he has been NPO overnight. CT abdomen/pelvis was obtained that revealed: No acute intra abdominal/pelvic process, left adrenal nodule 2cm favors adenoma to follow up with repeat CT in on year. General surgery-Dr Mendoza following. Otherwise, will continue with current treatment plan. Continue to monitor and follow up post-procedure and labs. Past Medical Family Social History Past Med/Fam/Surg Hx: No changes since H&P Allergies: Allergies No Known Drug Allergies Allergy (Verified 11/17/21 20:09) Review of Systems ROS: No change since H&P Vital Signs and I&O's Vital Signs: Temperature 98.7 F Pulse Rate [Bilateral Radial] 110 Pulse Rate 102 Respiratory Rate 26 Blood Pressure [Left Arm] 117/56 Blood Pressure 152/75 O2 Sat by Pulse Oximetry 91 Intake and Output: Intake & Output 11/21/21 11/22/21 11/23/21 11/24/21 23:59 23:59 23:59 23:59 Intake Total 2862 / 2862 2932 / 2932 1449 / 1449 610 / 610 Output Total 550 / 550 1100 / 1100 300 / 300 3 / 3 Balance 2312 / 2312 1832 / 1832 1149 / 1149 607 / 607 Physical Exam Oriented: Normal Eyes: Normal Ear: Normal Nose: Normal Throat: Normal Respiratory: Normal Cardiovascular: Normal : Normal Auscultation: Bowel Sounds: Normal Tenderness: Normal Skin: Decreased Turgur Musculoskeletal: Normal Psychiatric: Normal Mood Description: Calm and Appropriate Affect: Normal Speech Pattern: Slurred Laboratory and Diagnostics Result Diagrams: 11/24/21 05:25 11/24/21 05:25 Labs: 11/20/21 21:27 Urine,Clean Catch Urine Culture - Final Laboratory WBC 7.3 X10^3/uL (3.6-10.0) 11/24/21 05:25 RBC 2.87 X10^6/uL (4.7-6.0) L 11/24/21 05:25 Hgb 9.7 g/dL (13.5-18.0) L 11/24/21 05:25 Hct 28.7 % (42.0-54.0) L 11/24/21 05:25 MCV 100.0 fL (80.0-100.0) 11/24/21 05:25 MCH 33.7 pg (27.0-34.0) 11/24/21 05:25 MCHC 33.7 g/dL (33.0-35.0) 11/24/21 05:25 RDW 19.8 % (11.6-16.5) H 11/24/21 05:25 Plt Count 224 X10^3/uL (150.0-450.0) 11/24/21 05:25 MPV 7.4 fL (7.4-11.0) 11/24/21 05:25 Neut % (Auto) 70.9 % (42.0-75.0) 11/24/21 05:25 Lymph % (Auto) 16.8 % (21.0-51.0) L 11/24/21 05:25 [place] % (Auto) 9.7 % (0.0-13.0) 11/24/21 05:25 Eos % (Auto) 2.2 % (0.9-2.9) 11/24/21 05:25 Baso % (Auto) 0.4 % (0.2-1.0) 11/24/21 05:25 Neut # (Auto) 5.2 x10^3/uL (2.2-4.8) H 11/24/21 05:25 Lymph # (Auto) 1.2 X10^3/uL (1.3-2.9) L 11/24/21 05:25 [place] # (Auto) 0.7 x10^3/uL (0.3-0.8) 11/24/21 05:25 Eos # (Auto) 0.2 x10^3/uL (0.0-0.2) 11/24/21 05:25 Baso # (Auto) 0.0 X10^3/uL (0.0-0.1) 11/24/21 05:25 Absolute Nucleated RBC 0.4 /100WBC 11/24/21 05:25 D-Dimer 0.50 ug/ml (0.0-0.57) 11/24/21 08:41 Sodium 138 mmol/L (136-145) 11/24/21 05:25 Corrected Sodium TNP 11/24/21 05:25 Potassium 4.3 mmol/L (3.5-5.1) 11/24/21 05:25 Chloride 104 mmol/L (98-107) 11/24/21 05:25 Carbon Dioxide 29.6 mmol/L (21-32) 11/24/21 05:25 BUN 5 mg/dL (7-18) L 11/24/21 05:25 Creatinine 0.52 mg/dL (0.70-1.30) L 11/24/21 05:25 Est GFR (MDRD) Af Amer > 60 (>60) 11/24/21 05:25 Est GFR (MDRD) Non-Af > 60 (>60) 11/24/21 05:25 Glucose 83 mg/dL (65-99) 11/24/21 05:25 Calcium 7.8 mg/dL (8.5-10.1) L 11/24/21 05:25 Corrected Calcium 9.1 mg/dL (8.5-10.1) 11/24/21 05:25 Magnesium 2.1 mg/dL (1.7-2.9) 11/23/21 05:33 Total Bilirubin 0.70 mg/dL (0.2-1.0) 11/24/21 05:25 AST 17 Units/L (15-37) 11/24/21 05:25 ALT 17 Units/L (12-78) 11/24/21 05:25 Alkaline Phosphatase 64 Units/L (46-116) 11/24/21 05:25 Creatine Kinase 128 Units/L (39-308) 11/20/21 14:50 Total Protein 5.5 g/dL (6.4-8.2) L 11/24/21 05:25 Albumin 2.4 g/dL (3.4-5.0) L 11/24/21 05:25 Globulin 3.1 g/dL (2.5-4.5) 11/24/21 05:25 Albumin/Globulin Ratio 0.8 Ratio (1.1-2.1) L 11/24/21 05:25 Specimen Type Catherized urine 11/22/21 19:51 Urine Color Dark yellow (YELLOW) 11/22/21 19:51 Urine Appearance Clear (CLEAR) 11/22/21 19:51 Urine pH 5.0 (5.0 - 8.0) 11/22/21 19:51 Ur Specific [place] 1.025 (1.000-1.030) 11/22/21 19:51 Urine Protein 1+ (NEGATIVE) 11/22/21 19:51 Urine Glucose (UA) Negative (NEGATIVE) 11/22/21 19:51 Urine Ketones 1+ (NEGATIVE) 11/22/21 19:51 Urine Blood 5+ (NEGATIVE) 11/22/21 19:51 Urine Nitrite Negative (NEGATIVE) 11/22/21 19:51 Urine Bilirubin Negative (NEGATIVE) 11/22/21 19:51 Urine Urobilinogen Normal (NORMAL) 11/22/21 19:51 Ur Leukocyte Esterase Negative (NEGATIVE) 11/22/21 19:51 Urine RBC 10-20 /HPF (0-3) A 11/22/21 19:51 Urine WBC 0-2 /HPF (0-5) 11/22/21 19:51 Ur Squamous Epith Cells Rare /HPF (NEGATIVE) 11/22/21 19:51 Ur Transition Epith Cell Few /HPF (NEGATIVE) 11/22/21 19:51 Urine Bacteria Negative /HPF (NEGATIVE) 11/22/21 19:51 Urine Mucus Rare /HPF (NEGATIVE) 11/20/21 21:27 Ur Culture Indicated? No/not indicated 11/22/21 19:51 SARS-CoV-2 (PCR) Negative (NEGATIVE) 11/20/21 21:27 Tissue Pathology To follow 11/23/21 15:28 Plan (1) Abdominal pain: Status: Acute Plan: IVF, Antiemetics prn Consulted general surgery (2) Nausea and vomiting: Status: Acute (3) Unintentional weight loss: Status: Acute (4) Weakness: Status: Acute (5) Dehydration: Status: Acute Plan: IVF (6) Elevated CEA: Status: Acute Plan: consult general surgery (7) Anemia: Status: Acute Plan: Anemia workup
[2021-11-24] MEDS ORDERED: VALIUM INJ IVP ONE (13:03)
[2021-11-24] MEDS ORDERED: VALIUM INJ ONE (13:04)
[2021-11-24] MEDS ORDERED: HALDOL INJ IM ONE (16:35)
[2021-11-24] MEDS ORDERED: HALDOL INJ ONE (16:42)
[2021-11-24] MEDS: DESYREL PO SCH (21:35)
[2021-11-25] MEDS: DUONEB 0.5 MG/3 MG (3 mL) NEB SCH ×2 (00:10→06:04)
[2021-11-25 01:16] VITALS: BP 146/65
[2021-11-25] MEDS ORDERED: VALIUM INJ IVP PRN (01:25)
[2021-11-25 06:02] LABS: BASOPHILS % (AUTO) 0.4 % (0.2-1.0); EOSINOPHILS % (AUTO) 0.3 % (0.9-2.9); HEMATOCRIT 29.8 % (42.0-54.0); HEMOGLOBIN 9.9 g/dL (13.5-18.0); LYMPHOCYTES % (AUTO) 12.9 % (21.0-51.0); MEAN CORPUSCULAR HGB CONC 33.2 g/dL (33.0-35.0); MEAN CORPUSCULAR VOLUME 99.4 fL (80.0-100.0); MEAN PLATELET VOLUME 6.8 fL (7.4-11.0); MONOCYTES # (AUTO) 0.6 x10^3/uL (0.3-0.8); MONOCYTES % (AUTO) 8.7 % (0.0-13.0); NEUTROPHILS # (AUTO) 5.8 x10^3/uL (2.2-4.8); NEUTROPHILS % (AUTO) 77.7 % (42.0-75.0); RED BLOOD COUNT 2.99 X10^6/uL (4.7-6.0); RED CELL DISTRIBUTION WIDTH 19.9 % (11.6-16.5); WHITE BLOOD COUNT 7.4 X10^3/uL (3.6-10.0)
[2021-11-25 06:19] LABS: ALANINE AMINOTRANSFERASE 20 Units/L (12-78); ALBUMIN 2.5 g/dL (3.4-5.0); ALKALINE PHOSPHATASE 70 Units/L (46-116); ASPARTATE AMINO TRANSFERASE 24 Units/L (15-37); BLOOD UREA NITROGEN 5 mg/dL (7-18); CALCIUM 7.9 mg/dL (8.5-10.1); CARBON DIOXIDE 30.1 mmol/L (21-32); CHLORIDE 103 mmol/L (98-107); COR CA(FOR HYPOALB) 9.1 mg/dL (8.5-10.1); CREATININE 0.58 mg/dL (0.70-1.30); SODIUM 139 mmol/L (136-145); TOTAL PROTEIN 5.6 g/dL (6.4-8.2); eGFR NON BLACK RACES > 60 (>60)
--- NOTE | 2021-11-25 08:09 | PCM.PROG ---
Progress Note Progress Note for Day of Date of Exam: 11/25/21 Subjective Subjective: Pt is a 66 year old male past medical history of Hypertension, DDD, admitted for abdominal pain, nausea, vomiting, loss of appetite, and unintentional weight loss. He is lying in bed this morning. No acute events overnight. Yesterday, he had EGD and colonoscopy. The EGD revealed: esophageal spasm of the lower esophagus, moderate duodenitis. No ulcers, bleeding, obstruction, or neoplasm. Colonoscopy was limited due to poor bowel prep and will have to be repeated at a later date. From nursing it was stated that he had refused to drink adequate amount of bowel prep. He has also been refusing physical therapy and has become more agitated toward nursing and following commands. I discussed with him importance of further imaging and was agreeable to CT head and CT of chest for further evaluation of possible etiology of symptoms as well as behavioral changes. He has no signs of fever or infection. Labs/imaging: Wbc 7.3, Hgb 9.7, Plt 224, Na 138, K 4.3, Creatinine 0.52, Glucose 83, D-dimer 0.50. Pt is currently receiving IVF NS@125ml/h, antiemetics prn, home medications, regular diet. CT abdomen/pelvis was obtained that revealed: No acute intra abdominal/pelvic process, left adrenal nodule 2cm favors adenoma to follow up with repeat CT in on year. Patient was ambulated to see if any oxygen requirement and did not qualify for home oxygen. He is very weak and would recommend physical therapy rehabilitation, however patient has declined and wants to go home. Without any help at home would not be a safe discharge. He is also refusing nursing instructions and orders. Consider transfer to a behavioral facility, will discuss with family. General surgery-Dr Mendoza following. [place], will continue with current treatment plan. Continue to monitor and follow up labs/imaging. Past Medical Family Social History Past Med/Fam/Surg Hx: No changes since H&P Allergies: Allergies No Known Drug Allergies Allergy (Verified 11/17/21 20:09) Review of Systems ROS: No change since H&P ROS changes noted: See HPI Vital Signs and I&O's Vital Signs: Temperature 97.6 F Pulse Rate [Bilateral Radial] 99 Pulse Rate 108 Respiratory Rate 23 Blood Pressure [Left Arm] 146/65 Blood Pressure 152/75 O2 Sat by Pulse Oximetry 95 Intake and Output: Intake & Output 11/22/21 11/23/21 11/24/21 11/25/21 23:59 23:59 23:59 23:59 Intake Total 2932 / 2932 1449 / 1449 610 / 610 0 / 0 Output Total 1100 / 1100 300 / 300 4 / 4 Balance 1832 / 1832 1149 / 1149 606 / 606 0 / 0 Physical Exam Oriented: Normal Eyes: Normal Ear: Normal Nose: Normal Throat: Normal Respiratory: Normal Cardiovascular: Normal : Normal Auscultation: Bowel Sounds: Normal Tenderness: Normal Skin: Decreased Turgur Musculoskeletal: Normal Psychiatric: Agitation Affect: Anxious Speech Pattern: Appropriate Laboratory and Diagnostics Result Diagrams: 11/25/21 05:50 11/25/21 05:50 Labs: 11/20/21 21:27 Urine,Clean Catch Urine Culture - Final Laboratory WBC 7.4 X10^3/uL (3.6-10.0) 11/25/21 05:50 RBC 2.99 X10^6/uL (4.7-6.0) L 11/25/21 05:50 Hgb 9.9 g/dL (13.5-18.0) L 11/25/21 05:50 Hct 29.8 % (42.0-54.0) L 11/25/21 05:50 MCV 99.4 fL (80.0-100.0) 11/25/21 05:50 MCH 33.0 pg (27.0-34.0) 11/25/21 05:50 MCHC 33.2 g/dL (33.0-35.0) 11/25/21 05:50 RDW 19.9 % (11.6-16.5) H 11/25/21 05:50 Plt Count 269 X10^3/uL (150.0-450.0) 11/25/21 05:50 MPV 6.8 fL (7.4-11.0) L 11/25/21 05:50 Neut % (Auto) 77.7 % (42.0-75.0) H 11/25/21 05:50 Lymph % (Auto) 12.9 % (21.0-51.0) L 11/25/21 05:50 [place] % (Auto) 8.7 % (0.0-13.0) 11/25/21 05:50 Eos % (Auto) 0.3 % (0.9-2.9) L 11/25/21 05:50 Baso % (Auto) 0.4 % (0.2-1.0) 11/25/21 05:50 Neut # (Auto) 5.8 x10^3/uL (2.2-4.8) H 11/25/21 05:50 Lymph # (Auto) 1.0 X10^3/uL (1.3-2.9) L 11/25/21 05:50 [place] # (Auto) 0.6 x10^3/uL (0.3-0.8) 11/25/21 05:50 Eos # (Auto) 0.0 x10^3/uL (0.0-0.2) 11/25/21 05:50 Baso # (Auto) 0.0 X10^3/uL (0.0-0.1) 11/25/21 05:50 Absolute Nucleated RBC 0.6 /100WBC 11/25/21 05:50 D-Dimer 0.50 ug/ml (0.0-0.57) 11/24/21 08:41 Sodium 139 mmol/L (136-145) 11/25/21 05:50 Corrected Sodium TNP 11/25/21 05:50 Potassium 4.5 mmol/L (3.5-5.1) 11/25/21 05:50 Chloride 103 mmol/L (98-107) 11/25/21 05:50 Carbon Dioxide 30.1 mmol/L (21-32) 11/25/21 05:50 BUN 5 mg/dL (7-18) L 11/25/21 05:50 Creatinine 0.58 mg/dL (0.70-1.30) L 11/25/21 05:50 Est GFR (MDRD) Af Amer > 60 (>60) 11/25/21 05:50 Est GFR (MDRD) Non-Af > 60 (>60) 11/25/21 05:50 Glucose 105 mg/dL (65-99) H 11/25/21 05:50 Calcium 7.9 mg/dL (8.5-10.1) L 11/25/21 05:50 Corrected Calcium 9.1 mg/dL (8.5-10.1) 11/25/21 05:50 Magnesium 2.1 mg/dL (1.7-2.9) 11/23/21 05:33 Total Bilirubin 0.80 mg/dL (0.2-1.0) 11/25/21 05:50 AST 24 Units/L (15-37) 11/25/21 05:50 ALT 20 Units/L (12-78) 11/25/21 05:50 Alkaline Phosphatase 70 Units/L (46-116) 11/25/21 05:50 Creatine Kinase 128 Units/L (39-308) 11/20/21 14:50 Total Protein 5.6 g/dL (6.4-8.2) L 11/25/21 05:50 Albumin 2.5 g/dL (3.4-5.0) L 11/25/21 05:50 Globulin 3.1 g/dL (2.5-4.5) 11/25/21 05:50 Albumin/Globulin Ratio 0.8 Ratio (1.1-2.1) L 11/25/21 05:50 Specimen Type Catherized urine 11/22/21 19:51 Urine Color Dark yellow (YELLOW) 11/22/21 19:51 Urine Appearance Clear (CLEAR) 11/22/21 19:51 Urine pH 5.0 (5.0 - 8.0) 11/22/21 19:51 Ur Specific [place] 1.025 (1.000-1.030) 11/22/21 19:51 Urine Protein 1+ (NEGATIVE) 11/22/21 19:51 Urine Glucose (UA) Negative (NEGATIVE) 11/22/21 19:51 Urine Ketones 1+ (NEGATIVE) 11/22/21 19:51 Urine Blood 5+ (NEGATIVE) 11/22/21 19:51 Urine Nitrite Negative (NEGATIVE) 11/22/21 19:51 Urine Bilirubin Negative (NEGATIVE) 11/22/21 19:51 Urine Urobilinogen Normal (NORMAL) 11/22/21 19:51 Ur Leukocyte Esterase Negative (NEGATIVE) 11/22/21 19:51 Urine RBC 10-20 /HPF (0-3) A 11/22/21 19:51 Urine WBC 0-2 /HPF (0-5) 11/22/21 19:51 Ur Squamous Epith Cells Rare /HPF (NEGATIVE) 11/22/21 19:51 Ur Transition Epith Cell Few /HPF (NEGATIVE) 11/22/21 19:51 Urine Bacteria Negative /HPF (NEGATIVE) 11/22/21 19:51 Urine Mucus Rare /HPF (NEGATIVE) 11/20/21 21:27 Ur Culture Indicated? No/not indicated 11/22/21 19:51 SARS-CoV-2 (PCR) Negative (NEGATIVE) 11/20/21 21:27 Tissue Pathology To follow 11/23/21 15:28 Plan (1) Abdominal pain: Status: Acute Plan: IVF, Antiemetics prn Consulted general surgery (2) Nausea and vomiting: Status: Acute (3) Unintentional weight loss: Status: Acute (4) Weakness: Status: Acute (5) Dehydration: Status: Acute Plan: IVF (6) Elevated CEA: Status: Acute Plan: consult general surgery (7) Anemia: Status: Acute Plan: Anemia workup
--- NOTE | 2021-11-25 10:04 | W.DIS.FURT ---
Summary of Discharge Admission Diagnosis Vital Signs: Vital Signs (72 hours) 11/22/21 12:00 11/22/21 13:55 11/22/21 14:55 Temperature 98.0 F Pulse Rate Pulse Rate [Bilateral Radial] 106 H Respiratory Rate 20 21 20 Blood Pressure Blood Pressure [Left Arm] 139/65 O2 Sat by Pulse Oximetry 95 Oxygen Delivery Method Nasal Cannula Oxygen Flow Rate 2 FIO2% 11/22/21 16:36 11/22/21 16:00 11/22/21 17:15 Temperature 97.7 F Pulse Rate 105 H Pulse Rate [Bilateral Radial] 109 H Respiratory Rate 20 Blood Pressure Blood Pressure [Left Arm] 149/76 O2 Sat by Pulse Oximetry 97 97 Oxygen Delivery Method Nasal Cannula Nasal Cannula Oxygen Flow Rate 2 2 FIO2% 28 11/22/21 20:00 11/22/21 21:06 11/22/21 22:06 Temperature 97.7 F Pulse Rate Pulse Rate [Bilateral Radial] 99 H Respiratory Rate 20 20 18 Blood Pressure Blood Pressure [Left Arm] 160/72 O2 Sat by Pulse Oximetry 99 Oxygen Delivery Method Nasal Cannula Oxygen Flow Rate 2 FIO2% 11/22/21 19:00 11/22/21 23:51 11/23/21 04:00 Temperature 98.4 F 98.5 F Pulse Rate Pulse Rate [Bilateral Radial] 108 H 118 H Respiratory Rate 20 20 Blood Pressure Blood Pressure [Left Arm] 135/71 136/60 O2 Sat by Pulse Oximetry 93 L 96 Oxygen Delivery Method Nasal Cannula Nasal Cannula Nasal Cannula Oxygen Flow Rate 2 2 2 FIO2% 11/23/21 07:56 11/23/21 07:00 11/23/21 13:10 Temperature 97.7 F 98.0 F Pulse Rate 105 H Pulse Rate [Bilateral Radial] 106 H Respiratory Rate 20 18 Blood Pressure 152/75 Blood Pressure [Left Arm] 155/70 O2 Sat by Pulse Oximetry 93 L 100 Oxygen Delivery Method Nasal Cannula Nasal Cannula Nasal Cannula Oxygen Flow Rate 2 2 FIO2% 11/23/21 12:00 11/23/21 13:00 11/23/21 08:45 Temperature 97.9 F Pulse Rate 106 H Pulse Rate [Bilateral Radial] 98 H Respiratory Rate 20 Blood Pressure Blood Pressure [Left Arm] 160/77 O2 Sat by Pulse Oximetry 93 L 100 Oxygen Delivery Method Nasal Cannula Nasal Cannula Oxygen Flow Rate 2 2 FIO2% 28 11/23/21 16:12 11/23/21 15:45 11/23/21 16:00 Temperature 97.8 F 98.3 F Pulse Rate Pulse Rate [Bilateral Radial] 93 H 96 H Respiratory Rate 14 20 20 Blood Pressure Blood Pressure [Left Arm] 150/69 152/70 O2 Sat by Pulse Oximetry 100 100 Oxygen Delivery Method Nasal Cannula Nasal Cannula Oxygen Flow Rate 2 2 FIO2% 11/23/21 16:15 11/23/21 16:30 11/23/21 16:45 Temperature 98.3 F 98.3 F 98.3 F Pulse Rate Pulse Rate [Bilateral Radial] 97 H 94 H 94 H Respiratory Rate 20 20 20 Blood Pressure Blood Pressure [Left Arm] 146/76 155/83 133/64 O2 Sat by Pulse Oximetry 97 99 99 Oxygen Delivery Method Nasal Cannula Nasal Cannula Nasal Cannula Oxygen Flow Rate 2 2 2 FIO2% 11/23/21 17:12 11/23/21 19:00 11/23/21 20:00 Temperature 98.6 F Pulse Rate Pulse Rate [Bilateral Radial] 107 H Respiratory Rate 14 20 Blood Pressure Blood Pressure [Left Arm] 145/84 O2 Sat by Pulse Oximetry 98 Oxygen Delivery Method Nasal Cannula Nasal Cannula Oxygen Flow Rate 2 2 FIO2% 11/23/21 23:50 11/22/21 20:05 11/23/21 21:50 Temperature 98.7 F Pulse Rate Pulse Rate [Bilateral Radial] 109 H Respiratory Rate 20 Blood Pressure Blood Pressure [Left Arm] 154/71 O2 Sat by Pulse Oximetry 95 Oxygen Delivery Method Nasal Cannula Nasal Cannula Nasal Cannula Oxygen Flow Rate 2 2 2 FIO2% 28 28 11/24/21 00:50 11/24/21 03:31 11/24/21 08:00 Temperature 98.8 F 98.7 F Pulse Rate 102 H Pulse Rate [Bilateral Radial] 109 H 110 H Respiratory Rate 20 26 H Blood Pressure Blood Pressure [Left Arm] 141/76 117/56 O2 Sat by Pulse Oximetry 95 97 91 L Oxygen Delivery Method Nasal Cannula Nasal Cannula Oxygen Flow Rate 2 2 FIO2% 11/24/21 07:00 11/24/21 08:30 11/24/21 20:00 Temperature 97.6 F Pulse Rate Pulse Rate [Bilateral Radial] 122 H Respiratory Rate 24 Blood Pressure Blood Pressure [Left Arm] 137/83 O2 Sat by Pulse Oximetry 93 L Oxygen Delivery Method Nasal Cannula Room Air Nasal Cannula Oxygen Flow Rate 2 2 FIO2% 21 11/24/21 20:49 10/04/22 20:00 11/25/21 00:10 Temperature Pulse Rate 87 Pulse Rate [Bilateral Radial] Respiratory Rate Blood Pressure Blood Pressure [Left Arm] O2 Sat by Pulse Oximetry 95 Oxygen Delivery Method Room Air Nasal Cannula Oxygen Flow Rate 2 2 FIO2% 28 11/25/21 00:00 11/25/21 06:05 11/25/21 06:12 Temperature 97.6 F Pulse Rate 108 H Pulse Rate [Bilateral Radial] 99 H Respiratory Rate 23 Blood Pressure Blood Pressure [Left Arm] 146/65 O2 Sat by Pulse Oximetry 100 95 Oxygen Delivery Method Nasal Cannula Nasal Cannula Oxygen Flow Rate 2 FIO2% Labs: Laboratory Last Values WBC 7.4 X10^3/uL (3.6-10.0) 11/25/21 05:50 RBC 2.99 X10^6/uL (4.7-6.0) L 11/25/21 05:50 Hgb 9.9 g/dL (13.5-18.0) L 11/25/21 05:50 Hct 29.8 % (42.0-54.0) L 11/25/21 05:50 MCV 99.4 fL (80.0-100.0) 11/25/21 05:50 MCH 33.0 pg (27.0-34.0) 11/25/21 05:50 MCHC 33.2 g/dL (33.0-35.0) 11/25/21 05:50 RDW 19.9 % (11.6-16.5) H 11/25/21 05:50 Plt Count 269 X10^3/uL (150.0-450.0) 11/25/21 05:50 MPV 6.8 fL (7.4-11.0) L 11/25/21 05:50 Neut % (Auto) 77.7 % (42.0-75.0) H 11/25/21 05:50 Lymph % (Auto) 12.9 % (21.0-51.0) L 11/25/21 05:50 [place] % (Auto) 8.7 % (0.0-13.0) 11/25/21 05:50 Eos % (Auto) 0.3 % (0.9-2.9) L 11/25/21 05:50 Baso % (Auto) 0.4 % (0.2-1.0) 11/25/21 05:50 Neut # (Auto) 5.8 x10^3/uL (2.2-4.8) H 11/25/21 05:50 Lymph # (Auto) 1.0 X10^3/uL (1.3-2.9) L 11/25/21 05:50 [place] # (Auto) 0.6 x10^3/uL (0.3-0.8) 11/25/21 05:50 Eos # (Auto) 0.0 x10^3/uL (0.0-0.2) 11/25/21 05:50 Baso # (Auto) 0.0 X10^3/uL (0.0-0.1) 11/25/21 05:50 Absolute Nucleated RBC 0.6 /100WBC 11/25/21 05:50 D-Dimer 0.50 ug/ml (0.0-0.57) 11/24/21 08:41 Sodium 139 mmol/L (136-145) 11/25/21 05:50 Corrected Sodium TNP 11/25/21 05:50 Potassium 4.5 mmol/L (3.5-5.1) 11/25/21 05:50 Chloride 103 mmol/L (98-107) 11/25/21 05:50 Carbon Dioxide 30.1 mmol/L (21-32) 11/25/21 05:50 BUN 5 mg/dL (7-18) L 11/25/21 05:50 Creatinine 0.58 mg/dL (0.70-1.30) L 11/25/21 05:50 Est GFR (MDRD) Af Amer > 60 (>60) 11/25/21 05:50 Est GFR (MDRD) Non-Af > 60 (>60) 11/25/21 05:50 Glucose 105 mg/dL (65-99) H 11/25/21 05:50 Calcium 7.9 mg/dL (8.5-10.1) L 11/25/21 05:50 Corrected Calcium 9.1 mg/dL (8.5-10.1) 11/25/21 05:50 Magnesium 2.1 mg/dL (1.7-2.9) 11/23/21 05:33 Total Bilirubin 0.80 mg/dL (0.2-1.0) 11/25/21 05:50 AST 24 Units/L (15-37) 11/25/21 05:50 ALT 20 Units/L (12-78) 11/25/21 05:50 Alkaline Phosphatase 70 Units/L (46-116) 11/25/21 05:50 Ammonia 102 umol/L (11-32) H 11/25/21 08:10 Creatine Kinase 128 Units/L (39-308) 11/20/21 14:50 Total Protein 5.6 g/dL (6.4-8.2) L 11/25/21 05:50 Albumin 2.5 g/dL (3.4-5.0) L 11/25/21 05:50 Globulin 3.1 g/dL (2.5-4.5) 11/25/21 05:50 Albumin/Globulin Ratio 0.8 Ratio (1.1-2.1) L 11/25/21 05:50 Specimen Type Catherized urine 11/22/21 19:51 Urine Color Dark yellow (YELLOW) 11/22/21 19:51 Urine Appearance Clear (CLEAR) 11/22/21 19:51 Urine pH 5.0 (5.0 - 8.0) 11/22/21 19:51 Ur Specific [place] 1.025 (1.000-1.030) 11/22/21 19:51 Urine Protein 1+ (NEGATIVE) 11/22/21 19:51 Urine Glucose (UA) Negative (NEGATIVE) 11/22/21 19:51 Urine Ketones 1+ (NEGATIVE) 11/22/21 19:51 Urine Blood 5+ (NEGATIVE) 11/22/21 19:51 Urine Nitrite Negative (NEGATIVE) 11/22/21 19:51 Urine Bilirubin Negative (NEGATIVE) 11/22/21 19:51 Urine Urobilinogen Normal (NORMAL) 11/22/21 19:51 Ur Leukocyte Esterase Negative (NEGATIVE) 11/22/21 19:51 Urine RBC 10-20 /HPF (0-3) A 11/22/21 19:51 Urine WBC 0-2 /HPF (0-5) 11/22/21 19:51 Ur Squamous Epith Cells Rare /HPF (NEGATIVE) 11/22/21 19:51 Ur Transition Epith Cell Few /HPF (NEGATIVE) 11/22/21 19:51 Urine Bacteria Negative /HPF (NEGATIVE) 11/22/21 19:51 Urine Mucus Rare /HPF (NEGATIVE) 11/20/21 21:27 Ur Culture Indicated? No/not indicated 11/22/21 19:51 SARS-CoV-2 (PCR) Negative (NEGATIVE) 11/20/21 21:27 Tissue Pathology To follow 11/23/21 15:28 Reason For Visit: DEHYDRATION, FAILURE TO THRIVE Discharge Diagnosis All Active Problems (Updated 11/22/21 @ 17:08 by AKUA DORMAN) Constipation (Acute) Anemia (Acute) Elevated CEA (Acute) Unintentional weight loss (Acute) Dehydration (Acute) Nausea and vomiting (Acute) Abdominal pain (Acute) Cystitis (Acute) Weakness (Acute) Hypocalcemia (Acute) Plan of Treatment: Continue with present treatment and follow up plan. Pt is to keep follow up appointment as instructed and take medications as ordered. Discharge Medications Discharge Medications: No Known Drug Allergies Allergy (Verified 11/17/21 20:09) CONTINUE taking the following medications alprazolam 0.5 mg tablet 1 tab PO BID PRN Anxiety 11/20/21 [History] ciprofloxacin HCl 500 mg tablet 500 mg PO BID 11/20/21 [History] esomeprazole magnesium 40 mg capsule,delayed release 1 cap PO DAILY 11/20/21 [History] oxycodone-acetaminophen 10 mg-325 mg tablet 1 tab PO TID PRN Pain 11/20/21 [History] promethazine 25 mg tablet 25 mg PO Q6H PRN Nausea 11/20/21 [History] trazodone 150 mg tablet 1 tab PO HS 11/20/21 [History] Discharge Disposition Assessment: No acute distress noted at time of discharge. Discharge Plan Discharge Plan Patient Disposition: 20 Condition: Poor Health Concerns: Post Hospitalization: new medications and changes needed to prevent readmission or further decline. Pt educated and given instructions on all concerns. Care Plan Goals: Problem: Altered nutrition Goal: Nutrition deficit will be minimized or prevented. Instructions: Follow provided instructions. Follow up with primary physician as directed. Contact primary care physician or report to the closest Emergency Room if condition worsens. Plan of Treatment: Continue with present treatment and follow up plan. Pt is to keep follow up appointment as instructed and take medications as ordered. Assessment: No acute distress noted at time of discharge. Prescriptions: No Action ciprofloxacin HCl 500 mg Tablet 500 mg PO BID Rx Instructions: Ordered for 7 days. Started on 11/18/2021 alprazolam 0.5 mg tablet 1 tab PO BID PRN (Reason: Anxiety) Label Comments: [NO ORIGINAL SIG] oxycodone-acetaminophen 10-325 mg Tablet 1 tab PO TID PRN (Reason: Pain) trazodone 150 mg tablet 1 tab PO HS Label Comments: [NO ORIGINAL SIG] esomeprazole magnesium 40 mg capsule,delayed release(DR/EC) 1 cap PO DAILY Label Comments: [NO ORIGINAL SIG] promethazine 25 mg Tablet 25 mg PO Q6H PRN (Reason: Nausea) Orders to Discharge Patient Discharge Orders: Release body (Routine); Ordered 11/25/21 Ordered By: Oneal Martin Discharge (Routine); Ordered 11/25/21 Ordered By: Oneal Martin Follow ups/Referrals Follow ups/Referrals: Oneal Martin [Primary Care Provider] - 12/01/21 10:[address] [STAFF PHYSICIAN] - 12/03/21 1:45 pm Instructions Instructions: Steps to Quit Smoking, [id number], Fall Prevention in the Home, Adult, [id number], Colonoscopy, Adult, Care After, Aazj-hn-Auxn, Upper Endoscopy, Care After, Hypertension, Adult, Gezu-yp-Btjn, Dehydration, Elderly, Ppbn-ym-Mcrl, Failure to Thrive, Adult, Vzpc-qo-Uisp Stand Alone Forms: Precautions for COVID19, [facility], Patient Portal, Social Distancing
--- NOTE | 2021-11-30 11:53 | DR.DECEASE ---
FORM Date of Admission Date of Admission: 11/20/21 Discharge Diagnosis (1) Abdominal pain: Problems (Updated 11/22/21 @ 17:08 by AKUA DORMNA) Constipation (Acute) K59.00 Anemia (Acute) D64.9 Elevated CEA (Acute) R97.0 Unintentional weight loss (Acute) R63.4 Dehydration (Acute) E86.0 Nausea and vomiting (Acute) R11.2 Abdominal pain (Acute) R10.9 Cystitis (Acute) N30.90 Weakness (Acute) R53.1 Hypocalcemia (Acute) E83.51 (2) Nausea and vomiting: Problems (Updated 11/22/21 @ 17:08 by AKUA DORMAN) Constipation (Acute) K59.00 Anemia (Acute) D64.9 Elevated CEA (Acute) R97.0 Unintentional weight loss (Acute) R63.4 Dehydration (Acute) E86.0 Nausea and vomiting (Acute) R11.2 Abdominal pain (Acute) R10.9 Cystitis (Acute) N30.90 Weakness (Acute) R53.1 Hypocalcemia (Acute) E83.51 (3) Unintentional weight loss: Problems (Updated 11/22/21 @ 17:08 by AKUA DORMAN) Constipation (Acute) K59.00 Anemia (Acute) D64.9 Elevated CEA (Acute) R97.0 Unintentional weight loss (Acute) R63.4 Dehydration (Acute) E86.0 Nausea and vomiting (Acute) R11.2 Abdominal pain (Acute) R10.9 Cystitis (Acute) N30.90 Weakness (Acute) R53.1 Hypocalcemia (Acute) E83.51 (4) Weakness: Problems (Updated 11/22/21 @ 17:08 by AKUA DORMAN) Constipation (Acute) K59.00 Anemia (Acute) D64.9 Elevated CEA (Acute) R97.0 Unintentional weight loss (Acute) R63.4 Dehydration (Acute) E86.0 Nausea and vomiting (Acute) R11.2 Abdominal pain (Acute) R10.9 Cystitis (Acute) N30.90 Weakness (Acute) R53.1 Hypocalcemia (Acute) E83.51 (5) Dehydration: Problems (Updated 11/22/21 @ 17:08 by AKUA DORMAN) Constipation (Acute) K59.00 Anemia (Acute) D64.9 Elevated CEA (Acute) R97.0 Unintentional weight loss (Acute) R63.4 Dehydration (Acute) E86.0 Nausea and vomiting (Acute) R11.2 Abdominal pain (Acute) R10.9 Cystitis (Acute) N30.90 Weakness (Acute) R53.1 Hypocalcemia (Acute) E83.51 (6) Elevated CEA: Problems (Updated 11/22/21 @ 17:08 by AKUA DORMAN) Constipation (Acute) K59.00 Anemia (Acute) D64.9 Elevated CEA (Acute) R97.0 Unintentional weight loss (Acute) R63.4 Dehydration (Acute) E86.0 Nausea and vomiting (Acute) R11.2 Abdominal pain (Acute) R10.9 Cystitis (Acute) N30.90 Weakness (Acute) R53.1 Hypocalcemia (Acute) E83.51 (7) Anemia: Problems (Updated 11/22/21 @ 17:08 by AKUA DORMAN) Constipation (Acute) K59.00 Anemia (Acute) D64.9 Elevated CEA (Acute) R97.0 Unintentional weight loss (Acute) R63.4 Dehydration (Acute) E86.0 Nausea and vomiting (Acute) R11.2 Abdominal pain (Acute) R10.9 Cystitis (Acute) N30.90 Weakness (Acute) R53.1 Hypocalcemia (Acute) E83.51 Problems (Updated 11/22/21 @ 17:08 by AKUA DORMAN) Constipation (Acute) K59.00 Anemia (Acute) D64.9 Elevated CEA (Acute) R97.0 Unintentional weight loss (Acute) R63.4 Dehydration (Acute) E86.0 Nausea and vomiting (Acute) R11.2 Abdominal pain (Acute) R10.9 Cystitis (Acute) N30.90 Weakness (Acute) R53.1 Hypocalcemia (Acute) E83.51 Labs Result Diagrams: 11/25/21 05:50 11/25/21 05:50 Home Medications Home Medications Medication Instructions Recorded Type alprazolam 0.5 mg tablet 1 tab PO BID PRN Anxiety 11/20/21 History ciprofloxacin HCl 500 mg tablet 500 mg PO BID 11/20/21 History esomeprazole magnesium 40 mg 1 cap PO DAILY 11/20/21 History capsule,delayed release oxycodone-acetaminophen 10 mg-325 1 tab PO TID PRN Pain 11/20/21 History mg tablet promethazine 25 mg tablet 25 mg PO Q6H PRN Nausea 11/20/21 History trazodone 150 mg tablet 1 tab PO HS 11/20/21 History Expiration Expiration Date: 11/25/21 Expiration Time: 08:35 Pronounced by: ARLENE LANDEROS Preliminary Cause of : CARDIAC ARREST
== END 2021-11-25 12:54 | disposition expired ==
LOC: MED/SURG
PROVIDERS: ADMIT Family Medicine; ATTEND Family Medicine
DX: I10 Essential (primary) hypertension; K22.2 Esophageal obstruction; R63.4 Abnormal weight loss; R97.0 Elevated carcinoembryonic antigen [CEA]; D64.89 Other specified anemias; E27.8 Other specified disorders of adrenal gland; R26.89 Other abnormalities of gait and mobility; R53.1 Weakness; R62.7 Adult failure to thrive; R11.2 Nausea with vomiting, unspecified; Z91.81 History of falling; R10.84 Generalized abdominal pain; R19.4 Change in bowel habit; R13.11 Dysphagia, oral phase; K29.80 Duodenitis without bleeding; E86.0 Dehydration; Z20.822 Contact with and (suspected) exposure to COVID-19; I46.9 Cardiac arrest, cause unspecified